=== PATIENT | male | born 1990 | race Caucasian/White ===

== ENCOUNTER 2023-05-26 17:30 | Emergency (ER) | payer OTHER ==
[2023-05-26 17:37] VITALS: BP 115/72; PULSE 100; RESP 18; TEMP 98; BMI 20.9
[2023-05-26] MEDS ORDERED: ACETAMINOPHEN 500 MG TABLET (FP) PO ONE (18:24)
[2023-05-26] MEDS ORDERED: IBUPROFEN 600 MG TABLET (FP) PO ONE ×2 (18:24→18:39)
[2023-05-26] MEDS ORDERED: ACETAMINOPHEN 500 MG TABLET (FP) ONE (18:39)
== END 2023-05-26 19:38 | disposition home or self-care (01) ==
LOC: JERFT 17:30
DX: S63.632A Sprain of interphalangeal joint of right middle finger, initial encounter (principal); M79.89 Other specified soft tissue disorders; M79.644 Pain in right finger(s); W19.XXXA Unspecified fall, initial encounter
CPT/HCPCS: 73110-TC-RT-FY; 73130-TC-RT-FY; 99283-25